=== PATIENT | male | born 1940 | race Caucasian/White ===

== ENCOUNTER → 2018-10-19 | Outpatient (CLI) | payer MEDICARE ==
[~2018-10-19] VITALS: Ht 182.9 cm; Wt 88.0 kg
[~2018-10-19] MED LIST: REGADENOSON 0.4 MG/5 ML PF SYG IVP SCH
== END | disposition home or self-care (01) ==
LOC: SHCH 08:46
PROVIDERS: ATTEND Internal Medicine Cardiovascular Disease
DX: I48.0 Paroxysmal atrial fibrillation (principal); I95.1 Orthostatic hypotension; I44.7 Left bundle-branch block, unspecified
CPT/HCPCS: 78452; 93017; 96374; A9500 ×2; J2785

== ENCOUNTER → 2021-07-25 | Outpatient (CLI) | payer MEDICARE | END | disposition home or self-care (01) | LOC: RAH 11:37 | PROVIDERS: ATTEND Physical Medicine & Rehabilitation | DX: M47.817 Spondylosis without myelopathy or radiculopathy, lumbosacral region (principal); M54.16 Radiculopathy, lumbar region | CPT/HCPCS: 72114 ==

== ENCOUNTER → 2021-07-26 | Outpatient (CLI) | payer MEDICARE | END | disposition home or self-care (01) | LOC: RAH 07:57 | PROVIDERS: ATTEND Physical Medicine & Rehabilitation | DX: M50.222 Other cervical disc displacement at C5-C6 level (principal); M50.221 Other cervical disc displacement at C4-C5 level; M48.02 Spinal stenosis, cervical region | CPT/HCPCS: 72141 ==

== ENCOUNTER → 2022-02-27 | Outpatient (CLI) | payer MEDICARE ==
[~2022-02-27] MED LIST changes: +ALBUTEROL 0.083% 2.5 MG/3 ML INH IH ONE; -REGADENOSON 0.4 MG/5 ML PF SYG IVP SCH
== END | disposition home or self-care (01) ==
LOC: RESP 13:20
PROVIDERS: ATTEND Internal Medicine Cardiovascular Disease
DX: R94.2 Abnormal results of pulmonary function studies (principal)
CPT/HCPCS: 94060; 94727; 94729

== ENCOUNTER 2023-07-04 08:55 | Emergency (ER) | payer MEDICARE, OTHER ==
[~2023-07-04] VITALS: Ht 182.9 cm; Wt 81.6 kg
[2023-07-04 09:09] LABS: BASOPHILS # (AUTO) 0.06 K/uL (0.00-0.20); BASOPHILS % (AUTO) 1.1 % (0.0-5.0); EOSINOPHILS # (AUTO) 0.15 K/uL (0.00-0.70); EOSINOPHILS % (AUTO) 2.7 % (0.0-8.0); HEMATOCRIT 40.3 % (42-54); IMMATURE GRANULOCYTE ABSOLUTE 0.03 K/uL (0-1); LYMPHOCYTES # (AUTO) 0.9 K/uL (1.0-4.8); LYMPHOCYTES % (AUTO) 16.6 % (21.0-51.0); MEAN CORPUSCULAR HEMOGLOBIN 33.7 pg (27.0-33.0); MEAN CORPUSCULAR HGB CONC 34.2 g/dL (32.0-36.0); MEAN CORPUSCULAR VOLUME 98.5 fL (79-99); MONOCYTES # (AUTO) 0.7 K/uL (0.1-1.0); NEUTROPHILS # (AUTO) 3.7 K/uL (1.8-7.7); NEUTROPHILS % (AUTO) 66.1 % (40.0-77.0); PLATELET COUNT (AUTO) 174 K/uL (130-400); RED BLOOD CELL COUNT(AUTO) 4.09 MIL/uL (4.50-6.20); RED CELL DISTRIBUTION WIDTH 13.3 % (11.0-15.5); WHITE BLOOD COUNT (AUTO) 5.5 K/uL (4.8-10.8)
[2023-07-04 09:22] LABS: INR 0.95 (0.85-1.15); PROTHROMBIN TIME 11.2 SEC (9.6-11.6)
[2023-07-04 09:24] LABS: PARTIAL THROMBOPLASTIN TIME 26.3 SEC (26.3-35.5)
[2023-07-04 09:27] LABS: CREATININE 1.3 mg/dL (0.5-1.3); POTASSIUM 4.6 mmol/L (3.5-5.1)
[2023-07-04 09:31] LABS: ALBUMIN 3.3 g/dL (3.5-5.0); BILIRUBIN,TOTAL 1.2 mg/dL (0.2-1.0); TOTAL PROTEIN, SERUM 6.9 g/dL (6.0-8.3)
[2023-07-04 09:54] LABS: B-TYPE NATRIURETIC PEPTIDE 64 pg/mL (0-100)
[2023-07-04 13:12] VITALS: BP 172/88; PULSE 58; RESP 18; O2SAT 97
[2023-07-06] MEDS ORDERED: TAMS-1 PO (21:52)
[2023-07-06] MEDS ORDERED: AMIO100T4 PO (21:52)
[2023-07-06] MEDS ORDERED: ROSU40TA70 PO (21:52)
[2023-07-06] MEDS ORDERED: PIND10TA2 PO (21:53)
[2023-07-06] MEDS ORDERED: LISI10TA24 PO (21:54)
[2023-07-06] MEDS ORDERED: LISI20TA24 PO (21:54)
[2023-07-06] MEDS ORDERED: APIX5TAB PO (21:55)
== END 2023-07-04 13:39 | disposition home or self-care (01) ==
LOC: EDH 08:55
DX: R07.1 Chest pain on breathing (principal)
CPT/HCPCS: 36415; 71045; 80053; 83880; 84484; 85025; 85610; 85730; 93005